=== PATIENT | male | born 1940 | race Caucasian/White ===

== ENCOUNTER → 2016-11-24 | Outpatient (CLI) | payer MEDICARE ==
[~2016-11-24] MED LIST: ALLO100T PO; ALLP100T PO; AMLO5TAB2 PO; ASPI81TA55 PO; CND32T PO; HCT25T PO; LORA10CA PO; METO100T2 PO; MULT-1029 PO; NAPR220C11 PO; PRD10T PO; TELM40TA3 PO
--- NOTE | 2016-11-25 11:28 | ECHOCARDIOGRAPHY REPORT ---
PROCEDURE PHYSICIAN: ANTONIO DAILY DATE OF PROCEDURE: 11/24/2016 TWO DIMENSIONAL ECHOCARDIOGRAM REPORT PRIMARY PHYSICIAN: Dr. Orosco OTHER PHYSICIAN: REFERRING PHYSICIAN: ORDERING PHYSICIAN: Dr. Daily INDICATION FOR THE PROCEDURE: Shortness of breath, hypertension, abnormal electrocardiogram. MEASUREMENTS DERIVED VALUES LV DIAMETER (LAX) NORMALS NORMALS Diastolic 5. (3.6-5.2) Eject. Fract. (60%+/-6%) Systolic (2.3-3.9) Diastolic Vol. % Shortening (0.22-0.42) Systolic Vol. Aortic Root 2.7 IVS THICKNESS Diastolic 0.9 (0.6-1.1) LVPW THICKNESS Diastolic 0.9 (0.6-1.1) LA DIAMETER Systolic 3.9 (2.1-3.7) Two-dimensional echocardiography shows normal global left ventricular systolic function with normal regional wall motion. Aortic, mitral and tricuspid valve leaflets show good leaflet excursion. There is mild aortic valve sclerosis and calcification. Aortic valve appears to be trileaflet. Mitral and tricuspid valve leaflets show good leaflet excursion. There is no significant pericardial effusion. Doppler imaging shows trivial to mild tricuspid and pulmonic regurgitation. Pulmonary artery systolic pressure is estimated to be 25 to 30 mmHg. There is no Doppler evidence of any significant valvular stenosis. Left ventricular ejection fraction is estimated approximately 60 to 65%. There was no evidence of significant intracardiac shunt on this transthoracic echographic study. Inferior vena cava appears to be of normal size. CONCLUSION: 1. Normal global left ventricular systolic function with an ejection fraction of 60 to 65%. 2. Mild aortic valve sclerosis without valvular stenosis. 3. Trivial to mild tricuspid and pulmonic regurgitation. 4. Pulmonary artery systolic pressure is estimated to be 25 to 30 mmHg. Job ID: [id number] Dictated Date: 11/24/2016 15:17:27 Block Cutter Date: 11/25/2016 11:22:02 / simona
== END ==
LOC: CARD 12:15
PROVIDERS: ATTEND Internal Medicine Cardiovascular Disease
DX: I73.9 Peripheral vascular disease, unspecified (principal); R06.02 Shortness of breath; I10 Essential (primary) hypertension; R94.31 Abnormal electrocardiogram [ECG] [EKG]; Z87.891 Personal history of nicotine dependence
CPT/HCPCS: 93306; 93923

== ENCOUNTER → 2016-11-26 | Outpatient (CLI) | payer MEDICARE ==
[~2016-11-26] VITALS: Ht 180.3 cm; Wt 124.7 kg
[~2016-11-26] MED LIST changes: +CATHETER FLUSH 10 ML SYR IV PRN; +REGADENOSON 0.4 MG/5 ML SYR (LEXISCAN) IV ONE
[2016-11-26 08:58] VITALS: BP 150/69
--- NOTE | 2016-12-04 08:30 | STRESS TEST ---
DATE OF SERVICE: 11/26/2016 ORDERING PHYSICIAN: Dr. Sushant Daily PRIMARY PHYSICIAN: Dr. Orosco CLINICAL DIAGNOSIS: Shortness of breath, abnormal electrocardiogram. Baseline images were carried out after injection of 10.25 mCi of [id number]. This was followed by 0.4 mg regadenoson and 30.6 mCi of technetium 99m-tetrofosmin for stress imaging. The electrocardiogram showed sinus rhythm at baseline and did not change significantly with the regadenoson infusion. Review of images at rest and following stress did not indicate any distinct perfusion defects consistent with significant myocardial ischemia or infarction. Gaited images show normal global left ventricular systolic function with normal regional wall motion. Left ventricular ejection fraction is calculated to be 73%. Left ventricular end diastolic volume is 59 mL. CONCLUSION: 1. No evidence of significant myocardial ischemia or infarction on this study. 2. Normal global left ventricular systolic function with a calculated ejection fraction of 73%. 3. Normal regional wall motion. Job ID: [id number] DocumentID: [id number] Dictated Date: 11/27/2016 14:59:40 Poultry Process Worker Date: 11/27/2016 17:06:29 Dictated By: SUSHANT DAILY MD, MA, FACP, FACC,
== END ==
LOC: CARD 07:20
PROVIDERS: ATTEND Internal Medicine Cardiovascular Disease
DX: I73.9 Peripheral vascular disease, unspecified (principal); R06.02 Shortness of breath; I10 Essential (primary) hypertension; R94.31 Abnormal electrocardiogram [ECG] [EKG]; Z87.891 Personal history of nicotine dependence
CPT/HCPCS: 78452; 93017

== ENCOUNTER 2017-04-23 15:02 | Emergency (ER) | payer MEDICARE ==
[~2017-04-23] VITALS: Ht 177.8 cm; Wt 125.2 kg
[~2017-04-23 15:02] MED LIST changes: -CATHETER FLUSH 10 ML SYR IV PRN; -REGADENOSON 0.4 MG/5 ML SYR (LEXISCAN) IV ONE
[2017-04-23] MEDS ORDERED: fentaNYL INJECTION 100 MCG/2 ML AMP IVP STA ×2 (15:15→15:39)
--- NOTE | 2017-04-23 15:29 | ED Upper Extremity ---
General Chief Complaint: Upper Extremity Stated Complaint: LT SHOULDER PAIN Nursing Triage Note: ARRIVED VIA EMS FROM HOME WITH COMPLAINTS OF RIGHT SHOULDER PAIN. STATES HE WAS WORKING ON HIS HOUSE WHEN ONE LEG WENT THRU THE FLOOR AND HE CAUGHT HIS SHOULDER ON A PIECE OF FURNITURE. Nursing Sepsis Screen: No Definite Risk Source: patient Exam Limitations: no limitations History of Present Illness Time seen by provider: 15:10 Initial Comments Here with complaint of right shoulder pain. States that she is working on a house when one of his legs went through the floor. His arm caught on a piece of furniture and got pushed up over his head and he dislocated his right shoulder. EMS was summoned. Apparently he had numbness noted to his right hand. Positioning did significantly improve his symptoms. He was actually best standing up with his arm dangling which appeared to have given some traction to help out with the symptoms. He is improved now. He did get IV and 50 g of fentanyl IV in route which did help her symptoms as well. Denies other injury. No reported abrasions. He did not hit his head. Onset: just prior to arrival (2 p.m. today) Severity: moderate Pain/Injury Location: right shoulder Method of Injury: fell Modifying Factors: Improves With Immobilization, Worse With Movement, Improves With Pain Medication, Improves With Rest Allergies and Home Medications Allergies Coded Allergies: No Known Drug Allergies (Unverified , 08/23/11) Home Medications Allopurinol 100 Mg Tablet, 100 MG PO DAILY, (Reported) Amlodipine Besylate 5 Mg Tablet, 5 MG PO DAILY, (Reported) Aspirin 81 Mg Tablet.dr, 81 MG PO DAILY, (Reported) Hydrochlorothiazide 25 Mg Tab, 50 MG PO DAILY, (Reported) Hydrocodone/Acetaminophen 1 Each Tablet, 1 EACH PO Q6H PRN for PAIN-MODERATE, # 8 Ref 0 Prescribed by: JOSÉ VALENTIN on 04/23/17 1623 Loratadine 10 Mg Capsule, 10 MG PO PRN, (Reported) Metoprolol Tartrate 100 Mg Tablet, 100 MG PO DAILY, (Reported) Multivit-Min/FA/Lycopene/Lut 1 Each Tablet, 1 EACH PO DAILY, (Reported) Naproxen Sodium 220 Mg Capsule, 220 MG PO PRN, (Reported) Telmisartan 40 Mg Tablet, 60 MG PO DAILY, (Reported) Constitutional: see HPI, No chills, No fever EENTM: no symptoms reported Respiratory: no symptoms reported Cardiovascular: no symptoms reported Gastrointestinal: no symptoms reported Musculoskeletal: see HPI, joint pain, muscle pain Skin: no symptoms reported Psychiatric/Neurological: See HPI All Other Systems Reviewed Negative Unless Noted: Yes Past Yrcfgtq-Rsbsvq-Cyfylz Hx Patient Social History Alcohol Use: Denies Use Recreational Drug Use: No Smoking Status: Former Smoker Type Used: Cigarettes Former Smoker, Quit: May 14, 1976 Recent Foreign Travel: No Contact w/Someone Who Travel: No Recent Infectious Disease Expo: No Recent Hopitalizations: Yes Immunizations Up To Date Tetanus Booster (TDap): More than 5yrs Date of Pneumonia Vaccine: Aug 27, 2011 Date of Influenza Vaccine: May 07, 2016 Seasonal Allergies Seasonal Allergies: Yes Surgeries History of Surgeries: Yes (hemorrhoidectomy) Respiratory History of Respiratory Disorde: No Cardiovascular History of Cardiac Disorders: Yes Cardiac Disorders: Hypertension Neurological History of Neurological Disord: No Reproductive System Hx Reproductive Disorders: No Genitourinary History of Genitourinary Disor: No Gastrointestinal History of Gastrointestinal Di: Yes Gastrointestinal Disorders: Hemorrhoids Musculoskeletal History of Musculoskeletal Dis: Yes Musculoskeletal Disorders: Arthritis, Gout Endocrine History of Endocrine Disorders: No HEENT History of HEENT Disorders: No Cancer History of Cancer: No Psychosocial History of Psychiatric Problem: No Integumentary History of Skin or Integumenta: No Blood Transfusions History of Blood Disorders: No Reviewed Nursing Assessment Reviewed/Agree w Nursing PMH: Yes Family Medical History Significant Family History: No Pertinent Family Hx Physical Exam Vital Signs Vital Sign - Last 12Hours 04/23/17 04/23/17 15:02 15:50 Temp 95.3 Pulse 61 Resp 18 B/P (MAP) 139/67 Pulse Ox 98 O2 Delivery Room Air Capillary Refill : Less Than 3 Seconds General Appearance: WD/WN, mild distress (shoulder dislocation) HEENT: PERRL/EOMI, pharynx normal Neck: non-tender, full range of motion, supple, normal inspection Cardiovascular: regular rate, rhythm, no murmur Respiratory: lungs clear, normal breath sounds Gastrointestinal: non tender, soft Back: normal inspection, no CVA tenderness Shoulder: asymmetry, deformity (empty joint deformity with prominence anterior suggesting anterior dislocation), limited ROM, pain, soft tissue tenderness Elbow/Forearm: non-tender, no evidence of injury, normal ROM, Right, Left Wrist: Yes no evidence of injury, Yes normal ROM Hand: normal ROM, Bilateral Neurologic/Tendon: normal sensation, normal motor functions, normal tendon functions Neurologic/Psychiatric: alert, oriented x 3 Skin: normal color, warm/dry Patient Education: Explained Benefits Agreement on procedure with pt: Yes Breath Sounds per Auscultation: Clear Heart Sounds per Auscultation: Regular Airway Exam: Mouth opens >2 fingers, Neck Full Range of Motion, Visulation of Uvula Sedation Adminstration Time: 15:50 Total Time spent in CS 10 Progress/Conclusion Fentanyl 50 g IV and Versed 2.5 mg IV given. patient during sedation. Tolerated procedure well. Re-examination Time: 16:13 Re-examination 1613: Patient awake and tolerating sips of fluid without difficulty. Splinting and Joint Reduction : Pre-Proc Neuro Vasc Exam: normal Post-Proc Neuro Vasc Exam: normal Joint Reduction Site: shoulder (R) Reduction Attempts: 1 Pre-Procedure NV Exam: Yes post joint reduction film: no fracture seen Progress Reduction completed under light sedation and patient tolerated procedure well without complications. Placed in sling afterwards. Progress/Results/Core Measures Results/Orders My Orders Orders - JOSÉ VALENTIN MD Fentanyl Injection (Sublimaze Injection (04/23/17 15:15) Shoulder, Right, 3 Views (04/23/17 15:15) Midazolam Injection (Versed Injection) (04/23/17 15:45) Fentanyl Injection (Sublimaze Injection (04/23/17 15:39) Sao2 W/End-Tidal Co2 Monitor (04/23/17 15:39) Shoulder, Right, 1 View (04/23/17 ) Medications Given in ED Current Medications Medications Dose Ordered Sig/Ac Route Start Time Stop Time Status Last Admin Dose Admin Midazolam HCl 5 mg ONCE ONCE IVP 04/23/17 15:45 04/23/17 15:46 DC 04/23/17 15:53 2.5 MG Vital Signs/I&O Vital Sign - Last 12Hours 04/23/17 04/23/17 04/23/17 15:02 15:50 16:03 Temp 95.3 Pulse 61 63 55 Resp 18 16 16 16 B/P (MAP) 139/67 124/48 126/76 Pulse Ox 98 98 97 O2 Delivery Room Air Room Air Blood Pressure Mean: 91 Progress Note : Progress Note Seen and evaluated. IV by EMS. Fentanyl 50 g IV for pain. Right shoulder x- ray. Monitor patient. 1615: Shoulder reduced with moderate sedation with Versed and fentanyl. Placed in sling afterwards. Post reduction x-ray shows joint reduction. Discharged home with return precautions. Patient verbalize understanding instructions and agreement with plan. Diagnostic Imaging Diagonstic Imaging: Xray Plain Films/CT/US/NM/MRI: other (right shoulder) Comments VIA [place], [place] NAME: CANDICE ERWIN [facility] REC#: [id number] PT STATUS: REG ER : 1940 PHYSICIAN: JOSÉ VALENTIN MD ADMIT DATE: 04/23/17/ER Draft Date of Exam:04/23/17 SHOULDER, RIGHT, 3 VIEWS INDICATION: Fall. FINDINGS: There is complete anterior subcoracoid glenohumeral dislocation. IMPRESSION: Anterior subcoracoid glenohumeral dislocation Dictated on workstation # [id number] Dict: 04/23/17 1547 Trans: 04/23/17 1554 [facility] [id number] Interpreted by: GILMAR ARANGO Electronically signed by: Reviewed: Reviewed by Me Diagonstic Imaging: Xray Plain Films/CT/US/NM/MRI: other (right shoulder. Postreduction) Comments VIA [facility] [place], [place] NAME: CANDICE ERWIN [facility] REC#: [id number] PT STATUS: REG ER : 1940 PHYSICIAN: JOSÉ VALENTIN MD ADMIT DATE: 04/23/17/ER Draft Date of Exam:04/23/17 SHOULDER, RIGHT, 1 VIEW INDICATION: Post reduction. Right shoulder. EXAMINATION: Right shoulder. FINDINGS: Single AP film shows the glenohumeral joint now in good alignment. AC joint is in good alignment. Moderate degenerative changes are noted. No fractures are seen. IMPRESSION: Satisfactory single view post reduction film of the shoulder. Dictated on workstation # [id number] Dict: 04/23/17 1615 Trans: 04/23/17 1618 [facility] [id number] Interpreted by: SYLVAIN ALLRED MD Electronically signed by: Reviewed: Reviewed by Me Departure Impression Impression: Primary Impression: Dislocation of right shoulder joint Qualified Codes: S43.004A - Unspecified dislocation of right shoulder joint, initial encounter Disposition: HOME, SELF-CARE Condition: Improved Departure-Patient Inst. Decision time for Depature: 16:18 Referrals: JENNIE REDDY MD (PCP/Family) Primary Care Physician TAYLER RIDLEY MD, ROBERT F DO ZAFUTA, MICHAEL P MD Patient Instructions: How to Use a Shoulder Sling, Shoulder Dislocation (DC) Add. Discharge Instructions: All discharge instructions reviewed with patient and/or family. Voiced understanding. Take medications as directed. Follow-up with your Dr. in a few days for recheck. Follow-up with the orthopedist listed or of your choosing within one week for recheck and further evaluation. Wear sling at all times except when showering for the next 2 weeks or until released by orthopedics. Return for worse pain, fever, vomiting, weakness, breathing problems, numbness or tingling in your hand or other concerns as needed. You may use ibuprofen 600 mg every 8 hours help every 8 hours as needed for pain as well. Scripts Hydrocodone/Acetaminophen (Hydrocodon -Acetaminophen 5-325) 1 Each Tablet 1 EACH PO Q6H Y for PAIN-MODERATE, #8 TAB 0 Refills Prov: JOSÉ VALENTIN MD 04/23/17 JOSÉ VALENTIN MD Apr 23, 2017 15:29
[2017-04-23] MEDS ORDERED: MIDAZOLAM 5 MG/5 ML (VERSED) VIAL IVP ONE (15:45)
--- NOTE | 2017-04-23 15:55 | Diagnostic Imaging Report ---
INDICATION: Fall. FINDINGS: There is complete anterior subcoracoid glenohumeral dislocation. IMPRESSION: Anterior subcoracoid glenohumeral dislocation Dictated by: Dictated on workstation # [id number]
--- NOTE | 2017-04-23 16:18 | Diagnostic Imaging Report ---
INDICATION: Post reduction. Right shoulder. EXAMINATION: Right shoulder. FINDINGS: Single AP film shows the glenohumeral joint now in good alignment. AC joint is in good alignment. Moderate degenerative changes are noted. No fractures are seen. IMPRESSION: Satisfactory single view post reduction film of the shoulder. Dictated by: Dictated on workstation # [id number]
[2017-04-23] MEDS ORDERED: HYDR-3812 PO (16:23)
[2017-04-23 16:48] VITALS: BP 133/78
== END 2017-04-23 16:48 | disposition home or self-care (01) ==
LOC: EDUNIT# 15:02 → ER 15:03
DX: S43.014A Anterior dislocation of right humerus, initial encounter (principal); I10 Essential (primary) hypertension; M10.9 Gout, unspecified; M19.90 Unspecified osteoarthritis, unspecified site; Z79.82 Long term (current) use of aspirin; Z87.891 Personal history of nicotine dependence; W23.1XXA Caught, crushed, jammed, or pinched between stationary objects, initial encounter
CPT/HCPCS: 73020; 73030; 93041; 96374

== ENCOUNTER 2017-10-22 03:02 | Emergency (ER) | payer MEDICARE ==
[~2017-10-22] VITALS: Ht 177.8 cm; Wt 124.7 kg
[~2017-10-22 03:02] MED LIST changes: +ACHD5005 PO
[2017-10-22] MEDS ORDERED: AMOXICILLIN 500 MG (POLYMOX) CAP PO ONE (03:15)
--- NOTE | 2017-10-22 03:18 | ED EENT ---
History of Present Illness General Chief Complaint: Ear Problems Stated Complaint: BLOOD COMING OUT OF RT EAR Source: patient Exam Limitations: no limitations History of Present Illness Date Seen by Provider: Oct 22, 2017 Time Seen by Provider: 03:05 Initial Comments This 77-year-old gentleman presents to emergency room with spontaneous bleeding from the right ear. He felt the warmth of the blood while lying in bed and noticed he was bleeding. He has had a head cold over the past week but denies any ear pain. He denies introducing any foreign objects into the ear. He denies any pain at this time. There is some dry blood on the external ear and in the ear canal but no active bleeding at this time. Allergies and Home Medications Allergies Coded Allergies: No Known Drug Allergies (Unverified , 08/23/11) Home Medications Allopurinol 100 Mg Tablet, 100 MG PO DAILY, (Reported) Amlodipine Besylate 5 Mg Tablet, 5 MG PO DAILY, (Reported) Aspirin 81 Mg Tablet.dr, 81 MG PO DAILY, (Reported) Hydrochlorothiazide 25 Mg Tab, 50 MG PO DAILY, (Reported) Hydrocodone Bit/Acetaminophen 1 Each Tablet, 1 EACH PO Q6H PRN for PAIN-MODERATE Prescribed by: JOSÉ VALENTIN on 04/23/17 1623 Loratadine 10 Mg Capsule, 10 MG PO PRN, (Reported) Metoprolol Tartrate 100 Mg Tablet, 100 MG PO DAILY, (Reported) Multivit-Min/FA/Lycopene/Lut 1 Each Tablet, 1 EACH PO DAILY, (Reported) Naproxen Sodium 220 Mg Capsule, 220 MG PO PRN, (Reported) Telmisartan 40 Mg Tablet, 60 MG PO DAILY, (Reported) Patient Home Medication List Home Medication List Reviewed: Yes Review of Systems Constitutional: no symptoms reported Eyes: No Symptoms Reported Ears: See HPI Nose: no symptoms reported Mouth: no symptoms reported Skin: see HPI Past Jyluuch-Iwnovd-Slehdj Hx Patient Social History Type Used: Cigarettes Former Smoker, Quit: May 14, 1976 Recent Foreign Travel: No Contact w/Someone Who Travel: No Recent Hopitalizations: Yes Immunizations Up To Date Tetanus Booster (TDap): More than 5yrs Date of Pneumonia Vaccine: Aug 27, 2011 Date of Influenza Vaccine: May 07, 2016 Seasonal Allergies Seasonal Allergies: Yes Surgeries History of Surgeries: Yes (hemorrhoidectomy) Respiratory History of Respiratory Disorde: No Cardiovascular History of Cardiac Disorders: Yes Cardiac Disorders: Hypertension Neurological History of Neurological Disord: No Reproductive System Hx Reproductive Disorders: No Genitourinary History of Genitourinary Disor: No Gastrointestinal History of Gastrointestinal Di: Yes Gastrointestinal Disorders: Hemorrhoids Musculoskeletal History of Musculoskeletal Dis: Yes Musculoskeletal Disorders: Arthritis, Gout Endocrine History of Endocrine Disorders: No HEENT History of HEENT Disorders: No Cancer History of Cancer: No Psychosocial History of Psychiatric Problem: No Integumentary History of Skin or Integumenta: No Blood Transfusions History of Blood Disorders: No Family Medical History Significant Family History: No Pertinent Family Hx Physical Exam General Appearance: WD/WN, no apparent distress Ears: right ear TM perforation, right ear other (there is erythema and fresh blood on the anterior right tympanic membrane. There is possible tympanic membrane tear or rupture. No purulent drainage or effusion is noted.), left ear TM normal, bilateral ear auricle normal, bilateral ear canal normal Neck: normal inspection Cardiovascular: regular rate, rhythm, no edema, no murmur Respiratory: lungs clear, normal breath sounds, no respiratory distress Neurologic/Psychiatric: building attendant II-XII nml as tested, no motor/sensory deficits, alert, normal mood/affect, oriented x 3 Skin: normal color, warm/dry Patient Education: Explained Benefits Breath Sounds per Auscultation: Clear Heart Sounds per Auscultation: Regular Airway Exam: Mouth opens >2 fingers, Neck Full Range of Motion, Visulation of Uvula Sedation Adminstration Time: 1550 Re-examination Time: 1613 Progress/Results/Core Measures Results/Orders My Orders Orders - SHABANA AWAN MD Amoxicillin Capsule (Polymox Capsule) (10/22/17 03:15) Progress Note : Progress Note Patient appeared to have some kind of tympanic membrane or deep canal injury. It is unclear if this was related to otitis media, traumatic, or spontaneous. First dose of amoxicillin was given in the ER. Departure Impression Impression: Primary Impression: Injury of tympanic membrane of right ear Qualified Codes: S09.301A - Unspecified injury of right middle and inner ear, initial encounter Disposition: 01 HOME, SELF-CARE Condition: Improved Departure-Patient Inst. Decision time for Depature: 03:17 Referrals: REINIER GARCIA MD, MARK D MD (PCP/Family) Primary Care Physician Patient Instructions: Ruptured Eardrum (DC) Add. Discharge Instructions: Complete your antibiotics as prescribed. Schedule follow-up appointment at Dr. Garcia's office for reexamination. Return to care if symptoms worsen. Do not put anything in your ear. All discharge instructions reviewed with patient and/or family. Voiced understanding. Scripts Amoxicillin (Amoxicillin) 500 Mg Tablet 1000 MG PO BID, #40 TAB Prov: SHABANA AWAN MD 10/22/17 SHABANA AWAN MD Oct 22, 2017 03:18
[2017-10-22] MEDS ORDERED: AMOX500T2 PO (03:19)
[2017-10-22 03:23] VITALS: BP 0/0
== END 2017-10-22 03:23 | disposition home or self-care (01) ==
LOC: ER 03:04
DX: S09.301A Unspecified injury of right middle and inner ear, initial encounter (principal); M10.9 Gout, unspecified; I10 Essential (primary) hypertension; Z87.19 Personal history of other diseases of the digestive system; Z87.891 Personal history of nicotine dependence; Z79.82 Long term (current) use of aspirin; X58.XXXA Exposure to other specified factors, initial encounter
CPT/HCPCS: 99283

== ENCOUNTER 2017-12-01 13:39 | Emergency (ER) | payer MEDICARE ==
[~2017-12-01] VITALS: Ht 177.8 cm; Wt 124.7 kg
[~2017-12-01 13:39] MED LIST changes: +AMOX500T2 PO
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
[2017-12-01] MEDS ORDERED: fentaNYL INJECTION 100 MCG/2 ML AMP IVP PRN ×2 (14:45→17:00)
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
--- NOTE | 2017-12-01 15:21 | Diagnostic Imaging Report ---
PROCEDURE: MR imaging cervical spine without contrast. TECHNIQUE: Multiplanar, multisequence MR imaging of the cervical spine was performed without contrast. INDICATION: Loss of consciousness with paresthesia. FINDINGS: There is diffuse disc desiccation and disc space narrowing throughout the cervical spine with prominent disc bulging and endplate spurring at the C3-4 and C4-5 levels. This results in high-grade spinal stenosis at both levels. There is mild disc bulging at C6-7 without significant spinal stenosis. There is suggestion of mild increased T2 signal within the spinal cord extending from C3-C5 as well. In addition, there is fluid along the anterior margin of the cervical spine with what appear to be disruption along the anterior longitudinal ligament at C4-5 and C6-7. This does result in mild widening of the anterior aspect of the disc spaces at C4-5 and C6-7. There is also increased T2 signal within the ligamentum nuchae from C3-C7. IMPRESSION: High-grade stenoses at C3-4 and C4-5 related to disc bulging and endplate spurring with apparent associated spinal cord contusion. In addition, there does appear to be disruption of the anterior longitudinal ligament and possible avulsion fractures at the C4-5 and C6-7 levels. Otherwise, no definite unstable fracture or malalignment is identified. Dictated by: Dictated on workstation # [id number]
[2017-12-01 15:23] LABS: BASOPHILS % (AUTO) 1 % (0-10); EOSINOPHILS # (AUTO) 0.1 10^3/uL (0.0-0.3); EOSINOPHILS % (AUTO) 3 % (0-10); HEMATOCRIT 33 % (40-54); HEMOGLOBIN 11.3 G/DL (13.3-17.7); LYMPHOCYTES # (AUTO) 1.2 X 10^3 (1.0-4.0); LYMPHOCYTES % (AUTO) 32 % (12-44); MEAN CORPUSCULAR HEMOGLOBIN 30 PG (25-34); MEAN CORPUSCULAR HGB CONC 34 G/DL (32-36); MEAN CORPUSCULAR VOLUME 89 FL (80-99); MEAN PLATELET VOLUME 10.1 FL (7.4-10.4); MONOCYTES # (AUTO) 0.3 X 10^3 (0.0-1.0); MONOCYTES % (AUTO) 8 % (0-12); NEUTROPHILS # (AUTO) 2.1 X 10^3 (1.8-7.8); NEUTROPHILS % (AUTO) 56 % (42-75); PLATELET COUNT 121 10^3/uL (130-400); RED BLOOD COUNT 3.72 10^6/uL (4.35-5.85); RED CELL DISTRIBUTION WIDTH 14.1 % (10.0-14.5); WHITE BLOOD COUNT 3.7 10^3/uL (4.3-11.0)
[2017-12-01 15:34] LABS: ALANINE AMINOTRANSFERASE 12 U/L (0-55); ALBUMIN 3.7 GM/DL (3.2-4.5); ALKALINE PHOSPHATASE 49 U/L (40-136); BILIRUBIN,TOTAL 0.6 MG/DL (0.1-1.0); BUN/CREATININE RATIO 21; CALCIUM 8.4 MG/DL (8.5-10.1); CARBON DIOXIDE 25 MMOL/L (21-32); CHLORIDE 102 MMOL/L (98-107); CREATININE SERUM 1.36 MG/DL (0.60-1.30); GFR ESTIMATED 51; GLUCOSE 105 MG/DL (70-105); POTASSIUM 4.1 MMOL/L (3.6-5.0); SODIUM 135 MMOL/L (135-145); TOTAL PROTEIN 7.6 GM/DL (6.4-8.2)
[2017-12-01] MEDS ORDERED: LIDOCAINE/EPI 2% 1:100,00 (XYLOCAINE) 20 ML VIAL INJ ONE (15:45)
[2017-12-01] MEDS ORDERED: NS IV 1000 ML 1,000 ML IV SCH (15:46)
[2017-12-01] MEDS ORDERED: TETANUS,DIPTH,PERTUSS P/F (BOOSTRIX) 0.5 ML VIAL IM STA (15:54)
[2017-12-01] MEDS ORDERED: NOREPINEPHRINE 4 MG in NS (IVPB) 250 ML IV SCH (16:00)
[2017-12-01] MEDS ORDERED: LIDOCAINE 1% INJ 50 ML (XYLOCAINE) VIAL IJ ONE (16:30)
[2017-12-01 17:05] VITALS: BP 131/65
== END 2017-12-01 17:05 | disposition short-term general hospital (02) ==
LOC: EDUNIT# 13:39 → ER 13:40
DX: S14.0XXA Concussion and edema of cervical spinal cord, initial encounter (principal); S01.81XA Laceration without foreign body of other part of head, initial encounter; I10 Essential (primary) hypertension; M10.9 Gout, unspecified; Z23 Encounter for immunization; Z87.19 Personal history of other diseases of the digestive system; Z79.82 Long term (current) use of aspirin; Z87.891 Personal history of nicotine dependence; Z90.89 Acquired absence of other organs; V28.4XXA Motorcycle driver injured in noncollision transport accident in traffic accident, initial encounter
CPT/HCPCS: 12052; 36415; 70450; 72125; 72141; 72192; 80053; 84484; 85025; 90471; 90715; 93005; 96361; 96365; 96375; 96376; 99291; 99292